=== PATIENT | female | born 1950 | race Caucasian/White ===

== ENCOUNTER 2018-01-04 15:30 | Outpatient (AMBR) | payer MEDICARE, MEDICAID, SELFPAY ==
--- NOTE | 2017-12-29 14:48 | PT.OIERPT ---
PT OP Initial Eval Patient Information Visit Reasons: back pain Medical Diagnosis: M54.5 Treatment Dx #1: Back Pain Treatment Dx #2: BLE Weakness Start of Care: 12/29/17 Date of Onset: 6 months ago Initial Assessment Subjective Pt is a 67 y/o female c/o chronic back pain (8/10) worsening 6 months ago. Pt mention that she recently had an xray but does not know the result. Pt currently has difficulty with walking, standing, chores, cooking, cleaning, and performing normal ADLs. Objective L/S AROM: all motions are limited in all plane (perform in sitting) Hip PROM: all motions are WFL BLE MMTs Hip Flexors: 3+/5 Adductors: 4-/5 Abductors: 3/5 Quads: 4/5 Hs: 3+/5 Oswestry score: 26% Assessment Pt demonstrate spinal mobility deficits with BLE weakness leading to decline function and difficulty with ADLs. Pt will benefit from physical therapy to increase overall mobiltiy, flexibility, and strength. Short Term and Senior Care Goals 1) Decrease back pain to 2/10 and oswestry score to 10 % in 6 wks to be able to walk more than 1 hr 2) Increase L/S AROM WFL with less pain in 6 wks to be abler to perform chores around the house 3) Increase core strength WFL in 6 wks to be able to perform lifting activities 4) Indep with HEP Treatment Plan 1) Manual Therapy 2) Therapeutic Activities 3) Therapeutic Exercises 4) Modalities (ice, heat) Frequency and Duration 1-2 x wk for 6 wks Certification Dates: 12/29/17 to 03/31/18 Office Procedures PT Outpatient G-Codes Date of Service PT Date of Service: 12/29/17 G-Codes Walking & Moving Around Mobility Current Status G-Code: G8978: CK 40-60% Mobility Status G-Code: G8979: CI 1-20% PT Procedures PT Date of Service: 12/29/17 OP PT Eval Mod Complex 30 minutes: Yes
--- NOTE | 2018-01-04 15:19 | PT.ODAYNRPT ---
PT Outpatient Daily Note Date of Service: January 04, 2018 OP Daily Note Visit Reasons: back pain Outpatient Physical Therapy Treatment Date: 01/04/18 Subjective: Pt's back feels okay. Pt had 3 MD appts today and is tired Objective: Please see flow chart for list of ther ex performed Assessment: tolerate exercises with minimal pain Plan: Continue with PT Length of Time (minutes) of Treatment: 30 Minutes Office Procedures PT Outpatient G-Codes Date of Service PT Date of Service: 12/29/17 G-Codes Walking & Moving Around Mobility Current Status G-Code: G8978: CK 40-60% Mobility Status G-Code: G8979: CI 1-20% PT Procedures PT Date of Service: 12/29/17 OP PT Eval Mod Complex 30 minutes: Yes PT Procedures PT Date of Service: 01/04/18 Therapeutic Exercise 30 minutes: Yes
== END 2018-01-09 23:59 | disposition home or self-care (01) ==
PROVIDERS: PCP Physician Assistant; Referring Provider Physician Assistant; Visit Provider Physician Assistant
DX: I10 Essential (primary) hypertension (principal)
CPT/HCPCS: 97110; 97162; G8978; G8979